=== PATIENT | female | born 1990 | race Caucasian/White ===

== ENCOUNTER → 2022-01-09 | Day surgery (SDC) | payer BC ==
[~2022-01-09] MED LIST: Dexamethasone 4 MG/ML SDV ONE; Ketamine 200 MG/20 ML MDV ONE; Ketorolac 30 MG/ML SDV ONE; Lidocaine 2% 5 ML SDV ONE; Midazolam 1 MG/ML 2 ML SDV ONE; Ondansetron 4 MG/2 ML SDV ONE; Phenylephrine 1% 10 MG/ML SDV ONE; Propofol 200 MG/20 ML SDV ONE; fentaNYL 100 MCG/2 ML SDV ONE
[2022-01-09] MEDS: Lactated Ringers 1,000 ML IV SCH (10:31)
[2022-01-09] MEDS: Lidocaine 1% with EPINEPHrine 1:100,000 20 ML MDV SUBCUT ONE (11:41)
== END ==
LOC: CC.SDS 07:25
PROVIDERS: ATTEND Surgery
DX: K42.9 Umbilical hernia without obstruction or gangrene (principal); E05.90 Thyrotoxicosis, unspecified without thyrotoxic crisis or storm; Z88.1 Allergy status to other antibiotic agents; Z79.899 Other long term (current) drug therapy; Z86.39 Personal history of other endocrine, nutritional and metabolic disease
CPT/HCPCS: 00750; 36415; 84703; J1100; J1885; J2250; J2370; J2405; J2704; J3010; J7120

== ENCOUNTER 2025-09-08 06:35 | Day surgery (SDC) | payer BC ==
[2025-09-08] MEDS: Lactated Ringers 1,000 ML IV SCH (06:55)
[2025-09-08] MEDS ORDERED: Propofol 200 MG/20 ML SDV ONE (07:25)
[2025-09-08] MEDS ORDERED: fentaNYL 50 MCG/ML SDV ONE (07:25)
[2025-09-08] MEDS ORDERED: Midazolam 1 MG/ML 2 ML SDV ONE (07:25)
[2025-09-08] MEDS ORDERED: Ketamine 200 MG/20 ML MDV ONE (07:25)
[2025-09-08] MEDS ORDERED: Ondansetron 4 MG/2 ML SDV ONE (07:25)
== END 2025-09-08 08:30 | disposition home or self-care (01) ==
LOC: CC.SDS 06:35
PROVIDERS: ATTEND Family Medicine
DX: K31.A11 Gastric intestinal metaplasia without dysplasia, involving the antrum (principal); K29.50 Unspecified chronic gastritis without bleeding; K20.0 Eosinophilic esophagitis; K21.9 Gastro-esophageal reflux disease without esophagitis; Z88.5 Allergy status to narcotic agent; Z79.899 Other long term (current) drug therapy
CPT/HCPCS: 00400; 00731; 36415; 84703; 87077; J2003; J2250; J2405; J2704; J3010; J3490; J7120

== ENCOUNTER → 2025-09-21 | Day surgery (SDC) | payer BC ==
[~2025-09-21] MED LIST changes: -Ketorolac 30 MG/ML SDV ONE; -Lidocaine 2% 5 ML SDV ONE; +Non-Formulary Medication 1 Each (L.Acidoph,Paracasei, B.Lactis [Probiotic] 1 EACH Capsule) PO SCH; -Phenylephrine 1% 10 MG/ML SDV ONE; -fentaNYL 100 MCG/2 ML SDV ONE; +fentaNYL 50 MCG/ML SDV ONE
[2025-09-21] MEDS: Lactated Ringers 1,000 ML IV SCH (07:25)
[2025-09-21] MEDS: Alum Hydrox/Mag Hydrox/Simeth 30 ML, Lidocaine 2% 15 ML PO ONE (11:13)
== END | disposition home or self-care (01) ==
LOC: CC.SDS 06:45
PROVIDERS: ATTEND Surgery
DX: K81.1 Chronic cholecystitis (principal); K21.9 Gastro-esophageal reflux disease without esophagitis; Z79.899 Other long term (current) drug therapy
CPT/HCPCS: 00790; 81025; 93005; A9270-GY; J0665; J1100; J1171; J2003; J2250; J2270; J2405; J2704; J3010; J3490; J7120